=== PATIENT | male | born 1945 | race Asian ===

== ENCOUNTER 2022-09-06 23:51 | Inpatient (IN) | payer MEDICARE, OTHER ==
[~2022-09-06] VITALS: Ht 154.9 cm; Wt 58.5 kg
--- NOTE | 2022-09-07 00:31 | NUR ---
[facility] FOR AGITATION YELLING AND AGRESSION TOWARDS STAFF. PT HAS HX OF DEMENTIA AND ENCEPHOLOPATHY AT BASELINE. PT AWAKE AND AGITATED WITH PURPOSEFUL MOVEMENTS.SITTER AT BEDSIDE AND SAFETY MEASURES IN PLACE.
--- NOTE | 2022-09-07 00:50 | NUR ---
AMANDA MCCARTHY SENT TO LAB
--- NOTE | 2022-09-07 00:55 | NUR ---
BLOOD DROW BY LAB TACH
[2022-09-07 01:19] LABS: BASOPHILS # (AUTO) 0.1 K/uL (0.0-0.2); BASOPHILS % (AUTO) 0.6 % (0.0-2.0); HEMATOCRIT 37 % (39-51); HEMOGLOBIN 12.1 g/dL (13.5-17.5); LYMPHOCYTES # (AUTO) 2.9 K/uL (0.8-4.8); LYMPHOCYTES % (AUTO) 30.1 % (20.0-44.0); MEAN CORPUSCULAR HGB CONC 33 g/dl (31.0-36.0); MEAN CORPUSCULAR VOLUME 104 fL (80-96); MONOCYTES # (AUTO) 0.8 K/uL (0.1-1.30); MONOCYTES % (AUTO) 8.2 % (2.0-12.0); NEUTROPHILS # (AUTO) 5.3 K/uL (1.8-8.9); NEUTROPHILS % (AUTO) 55.1 % (43.0-81.0); PLATELET COUNT (AUTO) 185 K/uL (150-450); RED BLOOD CELL COUNT(AUTO) 3.58 MIL/uL (4.5-6.0); WHITE BLOOD COUNT (AUTO) 9.6 K/uL (4.3-11.0)
[2022-09-07 01:38] LABS: ALANINE AMINOTRANSFERASE 21 U/L (12-78); ALBUMIN 3.4 g/dL (3.4-5.0); ALCOHOL, BLOOD < 3 mg/dL (0-0); ALKALINE PHOSPHATASE 73 U/L (46-116); ASPARTATE AMINOTRANSFERASE 23 U/L (15-37); BILIRUBIN,DIRECT 0.2 mg/dL (0.0-0.2); BILIRUBIN,TOTAL 0.6 mg/dL (0.2-1.0); CALCIUM, SERUM 9.3 mg/dL (8.5-10.1); CARBON DIOXIDE 23 mmol/L (21-32); CHLORIDE 106 mmol/L (98-107); CREATININE 1.6 mg/dL (0.6-1.3); GLUCOSE 95 mg/dL (74-106); POTASSIUM 4.3 mmol/L (3.5-5.1); SODIUM SERUM 139 mmol/L (136-145); TOTAL PROTEIN, SERUM 7.6 g/dL (6.4-8.2); UREA NITROGEN, BLOOD 45 mg/dL (7-18)
[2022-09-07 01:44] LABS: ACETAMINOPHEN 0 ug/ml (10-30)
--- NOTE | 2022-09-07 03:33 | NUR ---
URINE COLLECTED AND SENT TO LAB
[2022-09-07 03:59] LABS: BILIRUBIN,URINE NEGATIVE (NEGATIVE); COLOR,URINE YELLOW (YELLOW); LEUKOCYTE ESTERASE ,URINE 2+ (NEGATIVE); NITRITE, URINE POSITIVE (NEGATIVE); PROTEIN,URINE TRACE mg/dl (NEGATIVE); UGLUCOSE NEGATIVE (NEGATIVE); UROBILINOGEN,URINE 0.2 EU/dL (0.2)
[2022-09-07 04:00] LABS: BACTERIA,URINE Few /HPF (None Seen); SQUAMOUS EPITHELIAL CELL,UR Moderate /HPF (None Seen)
--- NOTE | 2022-09-07 08:38 | NUR ---
MOVE SHEET SUBMITTED.
[2022-09-07] MEDS ORDERED: HALOPERIDOL 5 MG TABLET PO SCH (16:00)
[2022-09-07] MEDS ORDERED: BENZTROPINE MESYLATE (1 MG) 1 MG TABLET PO SCH (17:00)
--- NOTE | 2022-09-07 17:17 | NUR ---
BED 215-2
--- NOTE | 2022-09-07 17:33 | NUR ---
REPORT GIVEN TO SHWETA BROWN OF [facility], TRANSFER PATIENT DURING SLEDGER PER NURSING SUP.
--- NOTE | 2022-09-07 19:30 | NUR ---
PT TRANSPORTED TO [facility] VIA GURNEY IN STABLE CONDITION
[2022-09-07 20:00] VITALS: BP 148/84
[2022-09-07 20:30] VITALS: BP 127/72
--- NOTE | 2022-09-07 20:30 | NUR ---
RN NOTES : ADMISSION NOTES: ADMITTED THIS 76Y/O MALE PATIENT ADMIT FROM [facility]/ED INITIALLY FROM [facility]. ADMITTED TO 5150 HOLD, DTO , GD, PER HOLD DUE TO AGITATION ,STRIKING OUT AND REFUSING CARE ,CONFUSED,YELLING SCREAMING,REFUSING MEDS, BEING VREBALLY PHYSICALLY AGGRESSIVE TOWARDS STAFF , UPON FACE TO FACE ASSESSMENT PATIENT IS A&O X1 ANXIOUS ,EASILY AGITATED , PARANOID, FORGETFUL , DISORGNIZED, DISHELVED, GUARDED, DISHELVED, POOR HYGIENE, DELUSIONAL UNCOOPERTIVE,POOR DECISION MAKING, DENIES SI /HI AT THIS TIME, PT. IS POOR HISTORIAN, POOR INSIGHT ,POOR JUDGEMENT, PT. REFUSED TO SIGNED ADMISSION CONSENT PAPERS, DUE TO AGITATED, CONFUSED , BOTH MD AWARE AND NOTIFIED OF THE ADMISSION, BELONGINGS CONTRABAND WERE DONE , PT. RIGHTS DISCUSS BY RADIOTELEGRAPH OPERATOR , PROVIDE THE PT. WITH HANDBOOK, AND MEDICATIONS GUIDE, ENVIRONMENTAL SAFETY CHECK DONE, ENCOURAGED PT. VERBALIZED ANY FEELING CONCERN TO STAFF, ORIENT TO UNIT POLICY, NO ACUTE DISTRESS NOTED,VITAL SIGNS WNL ,DENIES ANY PAIN AT THIS TIME,WILL CONTINUE TO MONITOR FOR Q15 SAFETY AND BEHAVIOR.
[2022-09-07] MEDS ORDERED: MAGNESIUM HYDROXIDE 30 ML UDC PO PRN (21:00)
[2022-09-07] MEDS ORDERED: MAG HYDROX/AL HYDROX/SIMETH 30 ML UDC PO PRN (21:00)
[2022-09-07] MEDS ORDERED: ACETAMINOPHEN 325 MG TABLET PO PRN (21:00)
[2022-09-07] MEDS ORDERED: ASPI-1169 PO (21:04)
[2022-09-07] MEDS ORDERED: ATOR40TA PO (21:05)
[2022-09-07] MEDS ORDERED: BISA5TAB10 PO (21:07)
[2022-09-07] MEDS ORDERED: BISA10SU11 RC (21:09)
[2022-09-07] MEDS ORDERED: [UNRECOGNIZED DRUG - CODE] PO (21:14)
[2022-09-07] MEDS ORDERED: OMEG1CAP PO (21:14)
[2022-09-07] MEDS ORDERED: CHOL2400 MC (21:14)
[2022-09-07] MEDS ORDERED: FURO20TA4 PO (21:17)
[2022-09-07] MEDS ORDERED: IPRA3AMP23 IH (21:18)
[2022-09-07] MEDS ORDERED: LATA2.5D15 EACHEYE (21:19)
[2022-09-07] MEDS ORDERED: METO25TA6 PO (21:20)
[2022-09-07] MEDS ORDERED: ONDA-97 PO (21:22)
[2022-09-07] MEDS ORDERED: PANT40SU2 PO (21:24)
[2022-09-07] MEDS ORDERED: RIVA1PAT3 TP (21:25)
[2022-09-07] MEDS ORDERED: SENN-18 PO (21:25)
[2022-09-07] MEDS ORDERED: CARB1TAB21 PO (21:29)
[2022-09-07] MEDS: LORAZEPAM 0.5 MG TABLET PO PRN (21:35)
--- NOTE | 2022-09-07 21:37 | NUR ---
RN NOTES : ANXIETY PT.NOTED ANXIOUS RESTLESS PARANOID,UNCOOPERTIVE ,NONREDIRECTABLE PRN ATIVAN 0.5 MG PO GIVEN FOR PT. BEHAVIOR, WILL CONTINUE TO MONITOR.
[2022-09-07] MEDS ORDERED: Medication Not On Formulary EA (Ipratropium/Albuterol Sulfate (Duoneb 2.5-0.5 Mg/3 Ml So IH PRN (22:00)
[2022-09-07] MEDS ORDERED: IPRATROPIUM NEB FS 0.5 MG/2.5 ML AMPUL.NEB IH PRN (22:00)
[2022-09-07] MEDS: LATANOPROST EYE DROP 0.005% 2.5 ML BOTTLE EACHEYE SCH (22:00)
[2022-09-07] MEDS ORDERED: ALBUTEROL FS 2.5 MG/0.5 ML VIAL.NEB NEB PRN (22:00)
[2022-09-07] MEDS ORDERED: BLOOD SUGAR DIAGNOSTIC 1 EACH STRIP IN ONE (22:00)
[2022-09-07] MEDS ORDERED: OLANZAPINE 2.5 MG TABLET PO SCH (22:00)
[2022-09-07] MEDS ORDERED: BISACODYL (5 MG) 5 MG TABLET.DR PO PRN (22:00)
[2022-09-07] MEDS: CEFUROXIME AXETIL 250 MG TABLET PO SCH (22:00)
[2022-09-07] MEDS ORDERED: ONDANSETRON 4 MG TAB.RAPDIS PO PRN (22:00)
[2022-09-07] MEDS: ATORVASTATIN 40 MG TABLET PO SCH (22:00)
[2022-09-07] MEDS ORDERED: BISACODYL SUPP (10 MG) 10 MG/SUPP.RECT SUPP.RECT RC PRN (22:00)
--- NOTE | 2022-09-07 22:22 | NUR ---
RN NOTES: PT. REFUSED NIGHT SCHEDUALE MEDS , LATANOPROS EYE DROP, CEFTIN, LIPITOR , ENCOURAGED X 3 PT. REFUSED , ANXIOUS , UNCOOPERTIVE , PT. STRONGLY REFUSED.
[2022-09-08] MEDS ORDERED: Z GUARD REMEDY 4 OZ OINT TP PRN (01:00)
--- NOTE | 2022-09-08 06:30 | NUR ---
RN NOTES: CALLED FAMILY MEMEBER AND NOTIFED TO DON LAWRENCE ( ) AT [phone] , REGARDING ABOUT PT. ADMITTED IN [facility].
--- NOTE | 2022-09-08 07:15 | NUR ---
rn note received pt is awake, alert and oriented x1-2 [facility]
[2022-09-08 08:00] VITALS: BP 149/80
[2022-09-08] MEDS ORDERED: Medication Not On Formulary EA (Omega-3 Fatty Acids/Fish Oil (Fish Oil 1,000 Mg Capsule) PO SCH (09:00)
[2022-09-08] MEDS ORDERED: RIVASTIGMINE TP SCH (09:00)
[2022-09-08 09:31] LABS: BASOPHILS % (AUTO) 0.6 % (0.0-2.0); EOSINOPHILS % (AUTO) 4.5 % (0.0-6.0); HEMATOCRIT 37 % (39-51); LYMPHOCYTES # (AUTO) 1.9 K/uL (0.8-4.8); LYMPHOCYTES % (AUTO) 24.5 % (20.0-44.0); MEAN CORPUSCULAR HGB CONC 33 g/dl (31.0-36.0); MEAN CORPUSCULAR VOLUME 102 fL (80-96); MONOCYTES # (AUTO) 0.6 K/uL (0.1-1.30); MONOCYTES % (AUTO) 7.4 % (2.0-12.0); NEUTROPHILS # (AUTO) 4.9 K/uL (1.8-8.9); PLATELET COUNT (AUTO) 194 K/uL (150-450); RED BLOOD CELL COUNT(AUTO) 3.59 MIL/uL (4.5-6.0); WHITE BLOOD COUNT (AUTO) 7.8 K/uL (4.3-11.0)
[2022-09-08] MEDS: CARBIDOPA/LEVODOPA 25/100 MG 1 UDTAB PO SCH ×3 (09:51→17:44)
[2022-09-08] MEDS: METOPROLOL TARTRATE 25 MG TABLET PO SCH ×2 (09:51→17:43)
[2022-09-08] MEDS: CHOLECALCIFEROL 1,000 UNIT TABLET (VIT D3) PO SCH (09:52)
[2022-09-08] MEDS: Z GUARD REMEDY 4 OZ OINT TP SCH (09:52)
[2022-09-08] MEDS: FUROSEMIDE 20 MG TABLET PO SCH (09:52)
[2022-09-08] MEDS: ASPIRIN 81 MG TAB.CHEW PO SCH (09:52)
[2022-09-08] MEDS: CEFUROXIME AXETIL 250 MG TABLET PO SCH ×2 (09:57→21:02)
[2022-09-08] MEDS: PANTOPRAZOLE 40 MG/PACK PACK PO SCH (09:57)
[2022-09-08] MEDS ORDERED: ACET-868 PO (09:58)
[2022-09-08] MEDS ORDERED: CHOL100043 PO (09:58)
[2022-09-08 10:27] LABS: CALCIUM, SERUM 8.5 mg/dL (8.5-10.1); CARBON DIOXIDE 24 mmol/L (21-32); CHLORIDE 109 mmol/L (98-107); CREATININE 1.7 mg/dL (0.6-1.3); GLUCOSE 143 mg/dL (74-106); MAGNESIUM 2.5 mg/dL (1.8-2.4); PHOSPHORUS 3.9 mg/dL (2.5-4.9); POTASSIUM 4.2 mmol/L (3.5-5.1); SODIUM SERUM 141 mmol/L (136-145); UREA NITROGEN, BLOOD 39 mg/dL (7-18)
[2022-09-08 16:00] VITALS: BP 157/73
--- NOTE | 2022-09-08 20:00 | NUR ---
RN NOTES: ALERT AND ORIENTED TO NAME. TAGALOG SPEAKING. IN HALLWAY UP IN ANTHONY-CHAIR. DENIES PAIN OR DISCOMFORT. SAFETY PRECAUTIONS MAINTAINED AT ALL TIMES. NO ACUTE DISTRESS NOTED AT THIS TIME.
[2022-09-08 20:36] VITALS: BP 146/86
[2022-09-08] MEDS: OLANZAPINE 2.5 MG TABLET PO SCH (21:02)
[2022-09-08] MEDS: ATORVASTATIN 40 MG TABLET PO SCH (21:02)
[2022-09-08] MEDS: LATANOPROST EYE DROP 0.005% 2.5 ML BOTTLE EACHEYE SCH (21:02)
--- NOTE | 2022-09-09 06:41 | NUR ---
ABLE TO SLEEP WELL DURING NIGHT. COMPLIANT WITH MEDICATIONS. PO FLUIDS GIVEN AND TAKEN WELL. AT THIS TIME AWAKE, ALERT TO NAME, VERBALLY RESPONSIVE. UP IN ANTHONY-CHAIR SITTING IN HALLWAY. SAFETY AND FALL PRECAUTIONS MAINTAINED.
[2022-09-09 08:00] VITALS: BP_SYST 102; BP_SYST 144; BP_DIAS 57; BP_DIAS 71
[2022-09-09] MEDS: METOPROLOL TARTRATE 25 MG TABLET PO SCH ×2 (09:00→16:58)
[2022-09-09] MEDS: ASPIRIN 81 MG TAB.CHEW PO SCH (09:06)
[2022-09-09] MEDS: CARBIDOPA/LEVODOPA 25/100 MG 1 UDTAB PO SCH ×3 (09:07→16:58)
[2022-09-09] MEDS: CHOLECALCIFEROL 1,000 UNIT TABLET (VIT D3) PO SCH (09:07)
[2022-09-09] MEDS: PANTOPRAZOLE 40 MG/PACK PACK PO SCH (09:08)
[2022-09-09] MEDS: FUROSEMIDE 20 MG TABLET PO SCH (09:08)
[2022-09-09] MEDS: CEFUROXIME AXETIL 250 MG TABLET PO SCH ×2 (09:08→21:57)
[2022-09-09] MEDS: Z GUARD REMEDY 4 OZ OINT TP SCH (09:18)
--- NOTE | 2022-09-09 10:44 | NUR ---
DAMON Initial Discharge Plan: Patient currently resides at [facility] [address], [place] ([phone]). DAMON spoke with Saul ([phone]) admin who stated that pt is welcomed back. DAMON will contact pt's Aria ([phone]) to discuss treatment/discharge plan. DAOMN will work with the MD, family, and treatment team to help coordinate appropriate discharge.
--- NOTE | 2022-09-09 10:45 | NUR ---
DAMON Clinical Note: Pt placed on a 5150 hold for danger to others and GD. Patient was aggressive at his facility towards staff. Patient currently resides at [address] ([phone]). DAMON spoke with Saul ([phone]) admin who stated that pt is welcomed back. DAMON will contact pt's Aria ([phone]) to discuss treatment/discharge plan.
--- NOTE | 2022-09-09 10:57 | NUR ---
Treatment Plan: Pt unable to sign treatment plan due to confusion.
--- NOTE | 2022-09-09 11:48 | NUR ---
DAMON Family Contact: DAMON contacted pt's Aria ([phone]) and discussed treatment/discharge plan. Aria stated that she would want pt to go to a group home (higher level of care). She stated that the assisted living is unable to provide appropriate care. 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 DAMON will work with the family.
[2022-09-09 12:09] LABS: BASOPHILS # (AUTO) 0.1 K/uL (0.0-0.2); EOSINOPHILS % (AUTO) 4.5 % (0.0-6.0); HEMATOCRIT 40 % (39-51); HEMOGLOBIN 13.2 g/dL (13.5-17.5); LYMPHOCYTES % (AUTO) 23.7 % (20.0-44.0); MEAN CORPUSCULAR HGB CONC 33 g/dl (31.0-36.0); MEAN CORPUSCULAR VOLUME 105 fL (80-96); MONOCYTES # (AUTO) 0.7 K/uL (0.1-1.30); MONOCYTES % (AUTO) 8.7 % (2.0-12.0); NEUTROPHILS # (AUTO) 5.2 K/uL (1.8-8.9); NEUTROPHILS % (AUTO) 62.1 % (43.0-81.0); PLATELET COUNT (AUTO) 196 K/uL (150-450); RED BLOOD CELL COUNT(AUTO) 3.84 MIL/uL (4.5-6.0); WHITE BLOOD COUNT (AUTO) 8.3 K/uL (4.3-11.0)
[2022-09-09 12:18] LABS: CARBON DIOXIDE 26 mmol/L (21-32); CHLORIDE 107 mmol/L (98-107); CREATININE 1.4 mg/dL (0.6-1.3); GLUCOSE 89 mg/dL (74-106); SODIUM SERUM 140 mmol/L (136-145); UREA NITROGEN, BLOOD 41 mg/dL (7-18)
[2022-09-09 12:26] LABS: CHOLESTEROL 130 mg/dL (<200); HDL CHOLESTEROL 64 mg/dL (40-60); LDL 67 mg/dL (0-99); TRIGLYCERIDES 64 mg/dL (30-150)
--- NOTE | 2022-09-09 19:30 | NUR ---
PATIENT RECEIVED IN THE ACTIVITY ROOM SITTING IN ANTHONY CHAIR. ALERT AND ORIENTED TO NAME. TAGALOG SPEAKING. DENIES PAIN OR DISCOMFORT. NONAMBULATORY. SAFETY MEASURES IN PLACE. WILL CONTINUE MONITORING FOR SAFETY AND WILL CONTINUE PLAN OF CARE.
[2022-09-09 19:53] VITALS: BP 136/84
[2022-09-09] MEDS: OLANZAPINE 2.5 MG TABLET PO SCH (21:57)
[2022-09-09] MEDS: ATORVASTATIN 40 MG TABLET PO SCH (21:57)
[2022-09-09] MEDS: LATANOPROST EYE DROP 0.005% 2.5 ML BOTTLE EACHEYE SCH (21:59)
--- NOTE | 2022-09-10 06:05 | NUR ---
PATIENT ASLEEP IN BED. ALERT AND ORIENTED TO NAME. TAGALOG SPEAKING. FORGETFUL AND CONFUSED. NEEDS FREQUENT REDIRECTIONS. NO ACUTE DISTRESS NOTED. DENIES SI/HI/AVH AT THIS TIME. ENCOURAGED TO VERBALIZE FEELINGS OR CONCERN. DUE MEDS GIVEN ORDERED. NEEDS ATTENDED. SAFETY MEASURES MAINTAINED. WILL ENDORSE TO NEXT NURSE ON DUTY FOR CONTINUITY OF CARE.
[2022-09-10 08:00] VITALS: BP 155/87
--- NOTE | 2022-09-10 08:48 | NUR ---
SNF Referral: DAMON sent clinicals to admin Zaki for placement to [facility] ([phone]) for placement. DAMON sent H & P, progress notes, and medication list.
[2022-09-10] MEDS: CHOLECALCIFEROL 1,000 UNIT TABLET (VIT D3) PO SCH (09:23)
[2022-09-10] MEDS: CARBIDOPA/LEVODOPA 25/100 MG 1 UDTAB PO SCH ×3 (09:23→16:13)
[2022-09-10] MEDS: ASPIRIN 81 MG TAB.CHEW PO SCH (09:23)
[2022-09-10] MEDS: CEFUROXIME AXETIL 250 MG TABLET PO SCH ×2 (09:24→20:59)
[2022-09-10] MEDS: FUROSEMIDE 20 MG TABLET PO SCH (09:24)
[2022-09-10] MEDS: PANTOPRAZOLE 40 MG/PACK PACK PO SCH (09:24)
[2022-09-10] MEDS: METOPROLOL TARTRATE 25 MG TABLET PO SCH ×2 (09:25→16:13)
[2022-09-10] MEDS: Z GUARD REMEDY 4 OZ OINT TP SCH (09:25)
--- NOTE | 2022-09-10 10:22 | NUR ---
SNF Contact: SW received a call from Yasmine alvares from [facility] ([phone]) who stated pt is accepted.
[2022-09-10 16:12] VITALS: BP 159/96
[2022-09-10 20:07] VITALS: BP 121/87
[2022-09-10] MEDS: OLANZAPINE 2.5 MG TABLET PO SCH (21:01)
[2022-09-10] MEDS: ATORVASTATIN 40 MG TABLET PO SCH (21:01)
[2022-09-10] MEDS: LATANOPROST EYE DROP 0.005% 2.5 ML BOTTLE EACHEYE SCH (21:02)
[2022-09-10] MEDS: OLANZAPINE ZYDIS 5 MG TAB.RAPDIS PO SCH (21:04)
[2022-09-10] MEDS: ZOLPIDEM TARTRATE 5 MG TABLET PO PRN (22:39)
[2022-09-11 08:00] VITALS: BP 155/77
[2022-09-11] MEDS: CARBIDOPA/LEVODOPA 25/100 MG 1 UDTAB PO SCH ×3 (08:46→16:30)
[2022-09-11] MEDS: CHOLECALCIFEROL 1,000 UNIT TABLET (VIT D3) PO SCH (08:46)
[2022-09-11] MEDS: PANTOPRAZOLE 40 MG/PACK PACK PO SCH (08:46)
[2022-09-11] MEDS: ASPIRIN 81 MG TAB.CHEW PO SCH (08:48)
[2022-09-11] MEDS: FUROSEMIDE 20 MG TABLET PO SCH (08:48)
[2022-09-11] MEDS: METOPROLOL TARTRATE 25 MG TABLET PO SCH ×2 (08:48→16:30)
[2022-09-11] MEDS: CEFUROXIME AXETIL 250 MG TABLET PO SCH ×2 (08:48→21:20)
[2022-09-11] MEDS: Z GUARD REMEDY 4 OZ OINT TP SCH (08:48)
--- NOTE | 2022-09-11 11:13 | NUR ---
WOUND CARE CONSULT: PT PRESENTS WITH LEFT ARM SKIN TEAR AND SACRAL INTACT DEEP TISSUE INJURY (PURPLE DISCOLORATION), PRESENT ON ADMISSION. RECOMMENDATIONS MADE FOR SKIN PROTECTION. DISCUSSED WITH NURSING STAFF. MD IN AGREEMENT WITH PLAN OF CARE.
[2022-09-11 16:00] VITALS: BP 115/70
[2022-09-11 20:10] VITALS: BP 139/74
--- NOTE | 2022-09-11 20:22 | NUR ---
RN NOTES: RECEIVED SITTING UP IN ANTHONY CHAIR, NO S/SX OF ACUTE DISTRESS NOTED. PATIENT ANXIOUS ,EASILY AGITATED,UNCOOPERTIVE, NEEDY, PARANOID,HYPERVERVAL, PARANOID,YELLING SCREAMING NEEDS FREQUENT REDIRECTION, DENIES SI/HI AT THIS TIME.ENCOURAGE TO VERBALIZED ANY FEELING OR CONCERN,REFUSED TO GO BACK TO BED , HIGH FALL RISKS, NEEDS FREQUENTLY REDIRECTIONS AND ORIENTATIONS ,SAFETY MEASURES IN PLACE. WILL CONTINUE TO MONITOR .Q15MIN ROUNDS FOR SAFETY AND BEHAVIOR.
[2022-09-11] MEDS: ATORVASTATIN 40 MG TABLET PO SCH (21:24)
[2022-09-11] MEDS: OLANZAPINE 2.5 MG TABLET PO SCH (21:24)
[2022-09-11] MEDS: LATANOPROST EYE DROP 0.005% 2.5 ML BOTTLE EACHEYE SCH (21:26)
[2022-09-11] MEDS: OLANZAPINE ZYDIS 5 MG TAB.RAPDIS PO SCH (21:30)
[2022-09-12 08:00] VITALS: BP 115/68
[2022-09-12] MEDS: CEFUROXIME AXETIL 250 MG TABLET PO SCH ×2 (09:25→21:09)
[2022-09-12] MEDS: CHOLECALCIFEROL 1,000 UNIT TABLET (VIT D3) PO SCH (09:26)
[2022-09-12] MEDS: PANTOPRAZOLE 40 MG/PACK PACK PO SCH (09:26)
[2022-09-12] MEDS: METOPROLOL TARTRATE 25 MG TABLET PO SCH ×2 (09:26→16:22)
[2022-09-12] MEDS: ASPIRIN 81 MG TAB.CHEW PO SCH (09:26)
[2022-09-12] MEDS: CARBIDOPA/LEVODOPA 25/100 MG 1 UDTAB PO SCH ×3 (09:26→16:22)
[2022-09-12] MEDS: FUROSEMIDE 20 MG TABLET PO SCH (09:26)
[2022-09-12] MEDS: Z GUARD REMEDY 4 OZ OINT TP SCH (09:27)
--- NOTE | 2022-09-12 10:27 | NUR ---
RN-NOTES RAISED PRINTER VERIFIED WITH PATIENT'S DON LAWRENCE REGARDING PATIENT'S CODE STATUS. PER PATIENT IS FULL CODE. SONYA GRAF NOTIFIED WITH T.O ORDER OF FULL CODE STATUS. NOTED AND CARRIED OUT.
[2022-09-12 16:00] VITALS: BP 111/59
[2022-09-12] MEDS: LORAZEPAM 0.5 MG TABLET PO PRN (16:21)
--- NOTE | 2022-09-12 16:23 | NUR ---
RN-NOTES PATIENT IN THE DAY ROOM UP IN THE ANTHONY CHAIR ,NOTED PATIENT AGITATED, DISROBING, UNCOOPERATIVE. ATIVAN 0.5MG P.O GIVEN PRN ORDER. WILL CONT.MONITORING FOR SAFETY AND BEHAVIOR.
--- NOTE | 2022-09-12 17:20 | NUR ---
RN-NOTES PATIENT VISIBLE IN THE UNIT A/O X1 GUARDED,NO ACUTE DISTRESS.COMPLIANT WITH MEDICATIONS.NOTED PATIENT WITH EPISODE OF AGITATION AND DISROBING. NEEDS FREQUENT REDIRECTIONS ,PRN MEDICATION GIVEN. NEEDS MAXIMUM ASSIST WITH ADL'S. DID WOUND TREATMENT ORDERED.ALL NEEDS ATTENDED AND ANTICIPATED. WILL CONT. MONITORING FOR SAFETY AND BEHAVIOR. WILL ENDORSE TO INCOMING NURSE FOR CONTINUITY OF CARE.
--- NOTE | 2022-09-12 19:20 | NUR ---
RN-NOTES VERIFIED WITH DR. HU REGARDING ZYPREXA ORDER.MD GAVE T.O ORDER TO D/C ZYPREXA 2.5MG . NOTED
[2022-09-12 20:00] VITALS: BP 134/84
--- NOTE | 2022-09-12 20:28 | NUR ---
RN NOTES: RECEIVED SITTING UP IN ANTHONY CHAIR, NO S/SX OF ACUTE DISTRESS NOTED. PATIENT ANXIOUS ,EASILY AGITATED,UNCOOPERTIVE, PARANOID,HYPERVERVAL, PARANOID, EPISODES OF YELLING SCREAMING NEEDS FREQUENT REDIRECTION, DENIES SI/HI AT THIS TIME.ENCOURAGE TO VERBALIZED ANY FEELING OR CONCERN,REFUSED TO GO BACK TO BED , HIGH FALL RISKS, NEEDS FREQUENTLY REDIRECTIONS AND ORIENTATIONS ,ALL NEEDS ATTENDED AND ANTICIPATED ,SAFETY MEASURES IN PLACE. WILL CONTINUE TO MONITOR .Q15MIN ROUNDS FOR SAFETY AND BEHAVIOR.
[2022-09-12] MEDS: ATORVASTATIN 40 MG TABLET PO SCH (21:09)
[2022-09-12] MEDS: OLANZAPINE ZYDIS 5 MG TAB.RAPDIS PO SCH (21:09)
[2022-09-12] MEDS: LATANOPROST EYE DROP 0.005% 2.5 ML BOTTLE EACHEYE SCH (21:10)
[2022-09-13 08:00] VITALS: BP 118/64
[2022-09-13] MEDS: CHOLECALCIFEROL 1,000 UNIT TABLET (VIT D3) PO SCH (08:13)
[2022-09-13] MEDS: PANTOPRAZOLE 40 MG/PACK PACK PO SCH (08:13)
[2022-09-13] MEDS: CEFUROXIME AXETIL 250 MG TABLET PO SCH ×2 (08:13→21:09)
[2022-09-13] MEDS: CARBIDOPA/LEVODOPA 25/100 MG 1 UDTAB PO SCH ×3 (08:13→17:04)
[2022-09-13] MEDS: FUROSEMIDE 20 MG TABLET PO SCH (08:13)
[2022-09-13] MEDS: ASPIRIN 81 MG TAB.CHEW PO SCH (08:13)
[2022-09-13] MEDS: Z GUARD REMEDY 4 OZ OINT TP SCH (08:14)
[2022-09-13] MEDS: METOPROLOL TARTRATE 25 MG TABLET PO SCH ×2 (08:14→17:04)
[2022-09-13 16:00] VITALS: BP 136/73
--- NOTE | 2022-09-13 17:53 | NUR ---
RN-NOTES PATIENT LYING IN BED AWAKE A/O X1 GUARDED,NO ACUTE DISTRESS.COMPLIANT WITH MEDICATIONS. NEEDS FREQUENT REDIRECTIONS AND DIRECTIONS. NEEDS MAXIMUM ASSIST WITH ADL'S AND FEEDING. DID WOUND TREATMENT ORDERED.ALL NEEDS ATTENDED AND ANTICIPATED. WILL CONT. MONITORING FOR SAFETY AND BEHAVIOR. WILL ENDORSE TO INCOMING NURSE FOR CONTINUITY OF CARE.
[2022-09-13 20:00] VITALS: BP 125/70
--- NOTE | 2022-09-13 20:27 | NUR ---
RN NOTES: RECEIVED PT. RESTING IN HIS ROOM, NO S/SX OF ACUTE DISTRESS NOTED. PATIENT ANXIOUS ,EASILY AGITATED,COOPERTIVE AT THIS TIME,HYPERVERVAL, PARANOID, EPISODES OF YELLING SCREAMING NEEDS FREQUENT REDIRECTION,ENCOURAGE TO VERBALIZED ANY FEELING OR CONCERN,HIGH FALL RISKS, NEEDS FREQUENTLY REDIRECTIONS AND ORIENTATIONS ,ALL NEEDS ATTENDED AND ANTICIPATED ,SAFETY MEASURES IN PLACE. WILL CONTINUE TO MONITOR .Q15MIN ROUNDS FOR SAFETY AND BEHAVIOR.
[2022-09-13] MEDS: OLANZAPINE ZYDIS 5 MG TAB.RAPDIS PO SCH (21:08)
[2022-09-13] MEDS: ATORVASTATIN 40 MG TABLET PO SCH (21:08)
[2022-09-13] MEDS: LATANOPROST EYE DROP 0.005% 2.5 ML BOTTLE EACHEYE SCH (21:09)
[2022-09-14 08:00] VITALS: BP 143/81
[2022-09-14] MEDS: CEFUROXIME AXETIL 250 MG TABLET PO SCH ×2 (08:48→21:00)
[2022-09-14] MEDS: CARBIDOPA/LEVODOPA 25/100 MG 1 UDTAB PO SCH ×3 (08:48→16:56)
[2022-09-14] MEDS: FUROSEMIDE 20 MG TABLET PO SCH (08:48)
[2022-09-14] MEDS: PANTOPRAZOLE 40 MG/PACK PACK PO SCH (08:48)
[2022-09-14] MEDS: Z GUARD REMEDY 4 OZ OINT TP SCH (08:49)
[2022-09-14] MEDS: ASPIRIN 81 MG TAB.CHEW PO SCH (08:49)
[2022-09-14] MEDS: METOPROLOL TARTRATE 25 MG TABLET PO SCH ×2 (08:49→16:55)
[2022-09-14] MEDS: CHOLECALCIFEROL 1,000 UNIT TABLET (VIT D3) PO SCH (10:45)
[2022-09-14 16:00] VITALS: BP 101/68
[2022-09-14 20:17] VITALS: BP 158/75
--- NOTE | 2022-09-14 20:28 | NUR ---
NURSING NOTES: RECEIVED PATIENT IN BED ASLEEP. NO SIGN OF DISTRESS OR DISCOMFORT NOTED. WILL CONTINUE TO MONITOR FOR SAFETY AND BEHAVIOR.
[2022-09-14] MEDS: LATANOPROST EYE DROP 0.005% 2.5 ML BOTTLE EACHEYE SCH (21:47)
[2022-09-14] MEDS: ATORVASTATIN 40 MG TABLET PO SCH (21:47)
[2022-09-14] MEDS: OLANZAPINE ZYDIS 5 MG TAB.RAPDIS PO SCH (21:47)
--- NOTE | 2022-09-14 21:49 | NUR ---
NURSING NOTES. CEFTIN 500MG, OLANZAPINE 5MG, ATORVASTATIN 40MG NOT GIVEN D/T PATIENT IS TOO SEDATED. NO SIGN OF DISTRESS OR DISCOMFORT NOTED. CHARGE NURSE AWARE. WILL CONTINUE TO MONITOR FOR SAFETY AND BEHAVIOR.
[2022-09-15 08:00] VITALS: BP 133/75
[2022-09-15] MEDS: Z GUARD REMEDY 4 OZ OINT TP SCH (08:34)
[2022-09-15] MEDS: ASPIRIN 81 MG TAB.CHEW PO SCH (08:37)
[2022-09-15] MEDS: METOPROLOL TARTRATE 25 MG TABLET PO SCH ×2 (08:37→16:57)
[2022-09-15] MEDS: CARBIDOPA/LEVODOPA 25/100 MG 1 UDTAB PO SCH ×3 (08:37→16:57)
[2022-09-15] MEDS: PANTOPRAZOLE 40 MG/PACK PACK PO SCH (08:37)
[2022-09-15] MEDS: CHOLECALCIFEROL 1,000 UNIT TABLET (VIT D3) PO SCH (08:38)
[2022-09-15] MEDS: FUROSEMIDE 20 MG TABLET PO SCH (08:38)
[2022-09-15 16:00] VITALS: BP 125/77
[2022-09-15 20:38] VITALS: BP 124/67
[2022-09-15] MEDS: ATORVASTATIN 40 MG TABLET PO SCH (22:02)
[2022-09-15] MEDS: OLANZAPINE ZYDIS 5 MG TAB.RAPDIS PO SCH (22:02)
[2022-09-15] MEDS: LATANOPROST EYE DROP 0.005% 2.5 ML BOTTLE EACHEYE SCH (22:03)
[2022-09-15] MEDS: ZOLPIDEM TARTRATE 5 MG TABLET PO PRN (22:03)
--- NOTE | 2022-09-15 22:05 | NUR ---
Pt c/o insomnia. Least restrictive measures ineffective. Ambien 5 mg po prn given as ordered. Will continue to monitor.
--- NOTE | 2022-09-15 23:10 | NUR ---
Post 1 hr Maryamien effective. Pt asleep easy to arouse. Will continue to monitor.
[2022-09-16] MEDS: LORAZEPAM 0.5 MG TABLET PO PRN (01:14)
--- NOTE | 2022-09-16 01:14 | NUR ---
Pt awake and agitated with uncontrollable yelling. Constantly trying to climb out of bed. Least restrictive measures ineffective. Ativan 0.5 mg po prn given as ordered. Will continue to monitor.
--- NOTE | 2022-09-16 02:20 | NUR ---
Post 1 hr Ativan effective. Pt calm and asleep easy to arouse. Frequent visual check done for safety. Will continue to monitor.
[2022-09-16 08:00] VITALS: BP 125/67
[2022-09-16] MEDS: ASPIRIN 81 MG TAB.CHEW PO SCH (09:02)
[2022-09-16] MEDS: PANTOPRAZOLE 40 MG/PACK PACK PO SCH (09:02)
[2022-09-16] MEDS: CARBIDOPA/LEVODOPA 25/100 MG 1 UDTAB PO SCH ×3 (09:02→17:05)
[2022-09-16] MEDS: CHOLECALCIFEROL 1,000 UNIT TABLET (VIT D3) PO SCH (09:02)
[2022-09-16] MEDS: METOPROLOL TARTRATE 25 MG TABLET PO SCH ×2 (09:02→17:08)
[2022-09-16] MEDS: FUROSEMIDE 20 MG TABLET PO SCH (09:03)
[2022-09-16] MEDS: Z GUARD REMEDY 4 OZ OINT TP SCH (09:03)
--- NOTE | 2022-09-16 10:20 | NUR ---
Court Notification: Patient's court hearing for 2883 was today and this automatic typewriter inspector left a voicemail to Aria ([phone]).
--- NOTE | 2022-09-16 10:21 | NUR ---
Court Hearing: Patient's court hearing for 9670 was today and it was upheld for GD.
--- NOTE | 2022-09-16 13:47 | NUR ---
DAMON Family Contact: DAMON contacted pt's Aria ([phone]) and stated pt is accepted at [facility] and she was happy about this.
--- NOTE | 2022-09-16 13:47 | NUR ---
SNF Contact: DAMON spoke with Zaki for placement to [facility] ([phone]) who stated pt is accepted.
[2022-09-16 16:00] VITALS: BP 101/64
--- NOTE | 2022-09-16 19:20 | NUR ---
OPEN RN NOTE: PT IN HALLWAY. AWAKE. IN ANTHONY CHAIR. ALERT/ORT X1. PT CONFUSED, ANXIOUS AND TALKING TO SELF AT TIMES, DISORGANIZED. NEEDS FREQUENT REDIRECTION. MED COMPLIANT. SAFETY PRECAUTIONS MAINTAINED. PT IN STABLE COND AT THIS TIME, WILL CONT TO MONITOR FOR SAFETY AND BEHAVIOR.
[2022-09-16] MEDS: ATORVASTATIN 40 MG TABLET PO SCH (21:08)
[2022-09-16] MEDS: OLANZAPINE ZYDIS 5 MG TAB.RAPDIS PO SCH (21:08)
[2022-09-16] MEDS: LATANOPROST EYE DROP 0.005% 2.5 ML BOTTLE EACHEYE SCH (21:08)
[2022-09-16 21:18] VITALS: BP 132/72
[2022-09-16] MEDS: ZOLPIDEM TARTRATE 5 MG TABLET PO PRN (23:18)
--- NOTE | 2022-09-17 06:44 | NUR ---
CLOSING NOTE: SLEEPING IN BED. ABLE TO SLEEP WELL WITH PRN AMBIEN. KEPT CLEAN AND COMFORTABLE.
--- NOTE | 2022-09-17 07:49 | NUR ---
GPS RN NOTE PT IS SLEEPING IN HER BED IN ROOM. BREATHING EVEN AND UNLABORED. PT IN STABLE CONDITION AT THIS TIME, DENIES PAIN OR DISCOMFORT. WILL CONTINUE TO MONITOR FOR SAFETY AND BEHAVIOR.
[2022-09-17 08:00] VITALS: BP 139/74
[2022-09-17] MEDS: PANTOPRAZOLE 40 MG/PACK PACK PO SCH (08:54)
[2022-09-17] MEDS: CARBIDOPA/LEVODOPA 25/100 MG 1 UDTAB PO SCH ×3 (08:54→16:24)
[2022-09-17] MEDS: ASPIRIN 81 MG TAB.CHEW PO SCH (08:55)
[2022-09-17] MEDS: METOPROLOL TARTRATE 25 MG TABLET PO SCH ×2 (08:55→16:24)
[2022-09-17] MEDS: CHOLECALCIFEROL 1,000 UNIT TABLET (VIT D3) PO SCH (08:56)
[2022-09-17] MEDS: FUROSEMIDE 20 MG TABLET PO SCH (08:56)
[2022-09-17] MEDS: OLANZAPINE 2.5 MG TABLET PO SCH (08:56)
[2022-09-17] MEDS: Z GUARD REMEDY 4 OZ OINT TP SCH (09:00)
--- NOTE | 2022-09-17 10:59 | NUR ---
GPS RN NOTE PATIENT IN DINNING ROOM , WATCHING TV, NOT IN DISTRESS
--- NOTE | 2022-09-17 14:41 | NUR ---
GPS RN NOTE SEEN BY PSYCHIATRIST, NO NEW ORDER GIVEN AT THIS TIME
[2022-09-17 16:00] VITALS: BP 124/60
--- NOTE | 2022-09-17 17:43 | NUR ---
GPS RN NOTE PATIENT IN DINNING ROOM ,ALL NEEDS ATTENDED, TAKING PO MEDS WELL HAVING DINNER , NOT IN DISTRESS
--- NOTE | 2022-09-17 18:51 | NUR ---
gps rn note patient in dinning room , resting comfortably o lexus chair, all needs attended , not in distress
--- NOTE | 2022-09-17 19:30 | NUR ---
TOM RN OPENING RECEIVED PATIENT IN BED. SUE SPEAKING. EASILY AGITATED AND GUARDED. WILL DO VISUAL CHECKS AND ROUNDING WITH STAFF TO ENSURE PATIENT SAFETY.
[2022-09-17 20:03] LABS: CALCIUM, SERUM 9.2 mg/dL (8.5-10.1); CARBON DIOXIDE 30 mmol/L (21-32); CHLORIDE 107 mmol/L (98-107); CREATININE 1.8 mg/dL (0.6-1.3); GLUCOSE 94 mg/dL (74-106); POTASSIUM 4.6 mmol/L (3.5-5.1); SODIUM SERUM 141 mmol/L (136-145); UREA NITROGEN, BLOOD 52 mg/dL (7-18)
[2022-09-17 20:38] VITALS: BP 114/70
[2022-09-17] MEDS: OLANZAPINE ZYDIS 5 MG TAB.RAPDIS PO SCH (21:27)
[2022-09-17] MEDS: ATORVASTATIN 40 MG TABLET PO SCH (21:27)
[2022-09-17] MEDS: LATANOPROST EYE DROP 0.005% 2.5 ML BOTTLE EACHEYE SCH (21:29)
[2022-09-17] MEDS: ZOLPIDEM TARTRATE 5 MG TABLET PO PRN (22:28)
--- NOTE | 2022-09-17 22:38 | NUR ---
noc rn note Patient not sleeping. given ambien as ordered for insomnia.
[2022-09-18 08:00] VITALS: BP 129/53
[2022-09-18] MEDS: Z GUARD REMEDY 4 OZ OINT TP SCH (08:19)
[2022-09-18] MEDS: OLANZAPINE 2.5 MG TABLET PO SCH (08:20)
[2022-09-18] MEDS: CARBIDOPA/LEVODOPA 25/100 MG 1 UDTAB PO SCH ×3 (08:20→17:04)
[2022-09-18] MEDS: FUROSEMIDE 20 MG TABLET PO SCH (08:20)
[2022-09-18] MEDS: ASPIRIN 81 MG TAB.CHEW PO SCH (08:20)
[2022-09-18] MEDS: PANTOPRAZOLE 40 MG/PACK PACK PO SCH (08:20)
[2022-09-18] MEDS: CHOLECALCIFEROL 1,000 UNIT TABLET (VIT D3) PO SCH (08:20)
[2022-09-18] MEDS: METOPROLOL TARTRATE 25 MG TABLET PO SCH ×2 (08:21→17:05)
--- NOTE | 2022-09-18 13:59 | NUR ---
SNF Referral: DAMON sent clinicals to Ashvin ([phone]) for placement to [facility]. DAMON sent H & P, progress notes, and medication list.
--- NOTE | 2022-09-18 15:01 | NUR ---
SNF Contact: SW spoke with Ashvin dick ([phone]) from [facility] and stated pt is denied due to behavioral issues.
[2022-09-18 16:00] VITALS: BP 125/80
[2022-09-18 20:00] VITALS: BP 139/73
[2022-09-18] MEDS: ATORVASTATIN 40 MG TABLET PO SCH (21:26)
[2022-09-18] MEDS: OLANZAPINE ZYDIS 5 MG TAB.RAPDIS PO SCH (21:26)
[2022-09-18] MEDS: LATANOPROST EYE DROP 0.005% 2.5 ML BOTTLE EACHEYE SCH (21:27)
[2022-09-19] MEDS: ZOLPIDEM TARTRATE 5 MG TABLET PO PRN (00:14)
--- NOTE | 2022-09-19 00:15 | NUR ---
NURSE NOTE: PT UNABLE TO SLEEP AT THIS TIME. ROBERTIEN PO ADMIN ORDERED. PT KARIE WELL. WILL CONT TO MONITOR.
--- NOTE | 2022-09-19 01:15 | NUR ---
NURSE NOTE: PT SLEEPING AT THIS TIME. MP EFFECTIVE. WILL CONT TO MONITOR.
[2022-09-19 08:00] VITALS: BP 117/68
[2022-09-19] MEDS: PANTOPRAZOLE 40 MG/PACK PACK PO SCH (08:32)
[2022-09-19] MEDS: Z GUARD REMEDY 4 OZ OINT TP SCH (08:33)
[2022-09-19] MEDS: CARBIDOPA/LEVODOPA 25/100 MG 1 UDTAB PO SCH ×3 (08:33→16:18)
[2022-09-19] MEDS: CHOLECALCIFEROL 1,000 UNIT TABLET (VIT D3) PO SCH (08:33)
[2022-09-19] MEDS: METOPROLOL TARTRATE 25 MG TABLET PO SCH ×2 (08:33→16:18)
[2022-09-19] MEDS: FUROSEMIDE 20 MG TABLET PO SCH (08:33)
[2022-09-19] MEDS: ASPIRIN 81 MG TAB.CHEW PO SCH (08:33)
[2022-09-19] MEDS: OLANZAPINE 2.5 MG TABLET PO SCH (08:33)
[2022-09-19 16:00] VITALS: BP 100/64
--- NOTE | 2022-09-19 18:38 | NUR ---
RN-NOTES PATIENT VISIBLE IN THE UNIT A/O X1 GUARDED,CALM ,NO ACUTE DISTRESS.COMPLIANT WITH MEDICATIONS. NEEDS MAXIMUM ASSIST WITH ADL'S. DID WOUND TREATMENT ORDERED.ALL NEEDS ATTENDED AND ANTICIPATED. WILL CONT. MONITORING FOR SAFETY AND BEHAVIOR. WILL ENDORSE TO INCOMING NURSE FOR CONTINUITY OF CARE.
[2022-09-19 20:02] VITALS: BP 126/61
--- NOTE | 2022-09-19 20:05 | NUR ---
RN NOTES: RECEIVED SITTING UP IN ANTHONY CHAIR, NO S/SX OF ACUTE DISTRESS NOTED. PATIENT EASILY AGITATED, CONFUSED, TALKING TO SELF, MED COMPLIANT NEEDS FREQUENT REDIRECTION, DENIES SI/HI AT THIS TIME.ENCOURAGE TO VERBALIZED ANY FEELING OR CONCERN , HIGH FALL RISKS, NEEDS FREQUENTLY REDIRECTIONS AND ORIENTATIONS ,ALL NEEDS ATTENDED AND ANTICIPATED ,SAFETY MEASURES IN PLACE. WILL CONTINUE TO MONITOR .Q15MIN ROUNDS FOR SAFETY AND BEHAVIOR.
[2022-09-19] MEDS: ATORVASTATIN 40 MG TABLET PO SCH (21:28)
[2022-09-19] MEDS: OLANZAPINE ZYDIS 5 MG TAB.RAPDIS PO SCH (21:28)
[2022-09-19] MEDS: LATANOPROST EYE DROP 0.005% 2.5 ML BOTTLE EACHEYE SCH (21:29)
[2022-09-20 08:00] VITALS: BP 130/69
--- NOTE | 2022-09-20 08:05 | NUR ---
SW Discharge Note: Patient will be discharged to [facility] SNF located at [address], . Please arrange ambulance transportation at 1PM. Realtime Reporter spoke with Celestine [facility] [employer] ([phone]) who stated patient will be accepted at facility today. Patient is alert and oriented x1, and is not able to plan for self-care at this time, but is willing to accept care. Patient denies any suicidal or homicidal ideations. Patient is aware and agreeable with discharge plans. Patients Aria ([phone]) is aware and agreeable. Patient will continue to follow-up with her (Psychiatrist) Dr. Ford [address], [place] [address]; and (Writing Manager) Dr. Nicholson [id number] [facility] [address] [place] [address]; ([phone]). Patient presents with euthymic mood and congruent affect.
[2022-09-20] MEDS: FUROSEMIDE 20 MG TABLET PO SCH (09:22)
[2022-09-20] MEDS: PANTOPRAZOLE 40 MG/PACK PACK PO SCH (09:22)
[2022-09-20] MEDS: ASPIRIN 81 MG TAB.CHEW PO SCH (09:22)
[2022-09-20] MEDS: OLANZAPINE 2.5 MG TABLET PO SCH (09:22)
[2022-09-20 09:23] VITALS: BP 130/69
[2022-09-20] MEDS: METOPROLOL TARTRATE 25 MG TABLET PO SCH (09:23)
[2022-09-20] MEDS: Z GUARD REMEDY 4 OZ OINT TP SCH (09:23)
[2022-09-20] MEDS: CARBIDOPA/LEVODOPA 25/100 MG 1 UDTAB PO SCH ×2 (09:23→12:04)
[2022-09-20] MEDS: CHOLECALCIFEROL 1,000 UNIT TABLET (VIT D3) PO SCH (09:24)
--- NOTE | 2022-09-20 13:31 | NUR ---
RN-DISCHARGE NOTES PATIENT HAD A DISCHARGE ORDER FROM DR. HU ( PSYCHIATRIST) DR. VELASCO MEDICALLY CLEARED PATIENT FOR DISCHARGE. PATIENT DID NOT VERBALIZE SI/HI,DENIES VISUAL/AUDITORY HALLUCINATIONS AT THE TIME OF DISCHARGE.REPORT WAS GIVEN TO AVTAR ( FACILITY APPLICATION SECURITY DEVELOPER STAFF). 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 PATIENT LEFT THE UNIT WITH ALL BELONGINGS INCLUDING LOWER AND UPPER DENTURES,, ENDORSE AND GIVEN TO THE AMBULANCE STAFF.
== END 2022-09-20 13:30 | DRG 885 ==
LOC: ER 23:55 → TRANSITION 09-07 05:09 → GPS 09-07 17:24
PROVIDERS: ADMIT Psychiatry & Neurology Psychiatry; ATTEND Student in an Organized Health Care Education/Training Program
DX: F29 Unspecified psychosis not due to a substance or known physiological condition (principal); N17.0 Acute kidney failure with tubular necrosis; N18.9 Chronic kidney disease, unspecified; F03.92 Unspecified dementia, unspecified severity, with psychotic disturbance; N39.0 Urinary tract infection, site not specified; Z16.35 Resistance to multiple antimicrobial drugs; Z20.822 Contact with and (suspected) exposure to COVID-19; F03.90 Unspecified dementia, unspecified severity, without behavioral disturbance, psychotic disturbance, mood disturbance, and anxiety; R13.10 Dysphagia, unspecified; R47.1 Dysarthria and anarthria; D64.9 Anemia, unspecified; Z73.6 Limitation of activities due to disability; B96.89 Other specified bacterial agents as the cause of diseases classified elsewhere; B96.1 Klebsiella pneumoniae [K. pneumoniae] as the cause of diseases classified elsewhere
CPT/HCPCS: 36415; 80048-TC; 80061-TC; 80076-TC; 81001; 82962-TC; 83735-TC; 84100-TC; 84443-TC; 85025-TC; 87081-TC; 87086-TC; 87186-TC; 97112-TC; 97116-TC; 97530-TC; C9803; G0480